=== PATIENT | male | born 1950 | race Caucasian/White ===

== ENCOUNTER 2016-09-28 20:33 | Inpatient (IN) | payer OTHER, MEDICAID ==
[~2016-09-28] VITALS: Ht 172.7 cm; Wt 64.9 kg
[2016-09-28] MEDS ORDERED: Solu-MEDROL 125mg Inj IVP ONE (21:00)
[2016-09-28] MEDS: Ipratropium 0.02% Inh Soln 2.5ml UD HHN SCH ×3 (21:03→21:44)
[2016-09-28] MEDS: Albuterol ud Inhalation HHN SCH ×3 (21:03→21:42)
[2016-09-28 21:26] LABS: BASOPHILS % (AUTO) 0.6 % (0.0-2.0); EOSINOPHILS % (AUTO) 0.9 % (0.0-3.0); LYMPHOCYTES % (AUTO) 13.6 % (20.0-45.0); MEAN CORPUSCULAR HEMOGLOBIN 29.9 PG (27.0-31.0); MEAN CORPUSCULAR HGB CONC 32.8 G/DL (32.0-36.0); MEAN CORPUSCULAR VOLUME 91 FL (80-99); MEAN PLATELET VOLUME 6.9 FL (6.5-10.1); MONOCYTES % (AUTO) 6.4 % (1.0-10.0); NEUTROPHILS % (AUTO) 78.4 % (45.0-75.0); PLATELET COUNT 299 K/UL (150-450); RED BLOOD COUNT 3.71 M/UL (4.70-6.10); RED CELL DISTRIBUTION WIDTH 15.2 % (11.6-14.8); WHITE BLOOD COUNT 10.9 K/UL (4.8-10.8)
--- NOTE | 2016-09-28 21:41 | Emergency Room Report ---
History of Present Illness General Chief Complaint: Dyspnea/Respdistress Source: Patient (CORINNE JOHN M.D.) Present Illness HPI 66-year-old male presents ED complaining of shortness of breath x2 days. Patient has history of COPD. States that he's been having cough and wheezing. Patient was given breathing treatment by EMS. Cough is productive with yellowish phlegm. Denies fevers chills. Denies chest pain. Denies drug use. No other aggravating relieving factors. Denies any other associated symptom (CORINNE JOHN M.D.) Allergies: Coded Allergies: PENICILLINS (Verified Allergy, Unknown, 09/28/16) WOOL (Verified Allergy, Unknown, 09/28/16) Uncoded Allergies: POLLEN (Allergy, Unknown, 09/28/16) Patient History Past Medical History: HTN, asthma, COPD Past Surgical History: none Pertinent Family History: none Social History: Denies: alcohol use, drug use, smoking Immunizations: UTD Reviewed Nursing Documentation: PMH: Agreed, PSxH: Agreed (CORINNE JOHN M.D.) Nursing Documentation-PMH Hx Hypertension: Yes Hx Asthma: Yes Hx COPD: Yes (CORINNE JOHN M.D.) Review of Systems All Other Systems: negative except mentioned in HPI (CORINNE JOHN M.D.) Physical Exam Vital Signs Date Time Temp Pulse Resp B/P Pulse Ox O2 Delivery O2 Flow Rate FiO2 09/28/16 20:27 99.9 92 16 131/75 89 Room Air Sp02 EP Interpretation: reviewed, normal General Appearance: no apparent distress, alert, GCS 15, non-toxic Head: normocephalic, atraumatic Eyes: bilateral eye PERRL, bilateral eye normal inspection ENT: hearing grossly normal, normal pharynx, no angioedema, normal voice Neck: full range of motion, supple/symm/no masses Respiratory: chest non-tender, decreased breath sounds, speaking full sentences , wheezing Cardiovascular #1: regular rate, rhythm, no edema Cardiovascular #2: 2+ carotid (R), 2+ carotid (L), 2+ radial (R), 2+ radial (L) , 2+ dorsalis pedis (R), 2+ dorsalis pedis (L) Gastrointestinal: normal bowel sounds, non tender, soft, non-distended, no guarding, no rebound Rectal: deferred Genitourinary: normal inspection, no CVA tenderness Musculoskeletal: back normal, gait/station normal, normal range of motion, non- tender Neurologic: alert, oriented x3, responsive, motor strength/tone normal, sensory intact, speech normal Psychiatric: judgement/insight normal, memory normal, mood/affect normal, no suicidal/homicidal ideation Reflexes: 3+ bicep (R), 3+ bicep (L), 3+ tricep (R), 3+ tricep (L), 3+ knee (R) , 3+ knee (L) Skin: normal color, no rash, warm/dry, well hydrated Lymphatic: no adenopathy (CORINNE JOHN M.D.) Medical Decision Making Diagnostic Impression: Primary Impression: COPD exacerbation Additional Impressions: Acute on chronic respiratory failure with hypoxia Anemia in chronic illness Labs Test 09/28/16 21:09 White Blood Count 10.9 K/UL (4.8-10.8) Red Blood Count 3.71 M/UL (4.70-6.10) Hemoglobin 11.1 G/DL (14.2-18.0) Hematocrit 33.7 % (42.0-52.0) Mean Corpuscular Volume 91 FL (80-99) Mean Corpuscular Hemoglobin 29.9 PG (27.0-31.0) Mean Corpuscular Hemoglobin Concent 32.8 G/DL (32.0-36.0) Red Cell Distribution Width 15.2 % (11.6-14.8) Platelet Count 299 K/UL (150-450) Mean Platelet Volume 6.9 FL (6.5-10.1) Neutrophils (%) (Auto) 78.4 % (45.0-75.0) Lymphocytes (%) (Auto) 13.6 % (20.0-45.0) Monocytes (%) (Auto) 6.4 % (1.0-10.0) Eosinophils (%) (Auto) 0.9 % (0.0-3.0) Basophils (%) (Auto) 0.6 % (0.0-2.0) (CORINNE JOHN M.D.) ER Course Patient was signed out to me. He presents with shortness of breath and wheezing. He has COPD exacerbation. No evidence of ACS, PE, dissection to name a few. I discussed the case with Dr. Carmona who will admit. Lab Results Impression labs unremarkable (ZEYAD DOWELL M.D.) EKG Diagnostic Results Rate: normal Rhythm: NSR ST Segments: no acute changes ASA given to the pt in ED: No (CORINNE JOHN M.D.) Rhythm Strip Diag. Results EP Interpretation: yes Rhythm: NSR, no PVC's, no ectopy (CORINNE JOHN M.D.) Chest X-Ray Diagnostic Results Chest X-Ray Ordered: Yes # of Views/Limited/Complete: 1 View EP Interpretation: Yes Interpretation: no consolidation, no effusion, no pneumothorax, no acute cardiopulmonary disease Indication: Shortness of Breath Impression: No acute disease Interpreting ER Provider: Zeyad Dowell MD (ZEYAD DOWELL M.D.) Last Vital Signs Date Time Temp Pulse Resp B/P Pulse Ox O2 Delivery O2 Flow Rate FiO2 09/28/16 21:30 94 22 96 Room Air 09/28/16 20:27 99.9 131/75 Status: improved (CORINNE JOHN M.D.) Status: improved (ZEAYD DOWELL M.D.) Disposition: ADMITTED INPATIENT Condition: Serious CORINNE JOHN M.D. Sep 28, 2016 21:41 ZEYAD DOWELL M.D. Sep 28, 2016 23:14
[2016-09-28 21:42] VITALS: BP_SYST 135; BP_SYST 143; BP_DIAS 75; BP_DIAS 89
[2016-09-28 21:46] LABS: TROPONIN I < 0.30 ng/mL (<=0.30)
[2016-09-28 21:50] LABS: ALANINE AMINOTRANSFERASE 15 U/L (3-41); ALBUMIN/GLOBULIN RATIO 1.4 (1.0-2.7); ANION GAP 17 (5-15); ASPARTATE AMINO TRANSFERASE 29 U/L (5-40); CARBON DIOXIDE 25 mEQ/L (20-30); CHLORIDE 95 mEQ/L (98-107); CREATININE 0.8 mg/dL (0.7-1.2); GLOMERULAR FILTRATION RATE > 60 mL/min (>60); HEMOLYSIS 10; POTASSIUM 4.5 mEQ/L (3.4-4.9); SODIUM 137 mEQ/L (135-145); TOTAL PROTEIN 6.9 g/dL (6.6-8.7)
[2016-09-28 22:01] LABS: CKMB 4.8 ng/mL (< 6.7)
[2016-09-28] MEDS ORDERED: Promethazine/Codeine 5ml UD ORAL PRN (23:15)
[2016-09-28] MEDS ORDERED: Nitroglycerin Subl 0.4mg tab (Bottle Of 25) SL PRN (23:15)
[2016-09-28] MEDS ORDERED: Ketorolac 30mg Inj IV PRN (23:15)
[2016-09-28] MEDS ORDERED: LORazepam Inj 2mg/ml 1ml IV PRN (23:15)
[2016-09-28] MEDS ORDERED: DuoNeb 0.5-3(2.5)mg/3ml neb HHN PRN (23:15)
[2016-09-29] VITALS (8 sets, daily range): BP systolic 95–146; BP diastolic 53–89
[2016-09-29] MEDS ORDERED: ADVAIR 100-501 EACH INH (00:09)
[2016-09-29] MEDS ORDERED: PRILOSEC OTC20 MG ORAL (00:11)
[2016-09-29] MEDS ORDERED: OXYCODON-ACETA1 EACH ORAL (00:11)
[2016-09-29] MEDS: Solu-MEDROL 125mg Inj IV SCH ×4 (01:14→18:25)
[2016-09-29] MEDS: Morphine Sulfate 2mg/ml Inj IVP PRN ×5 (01:18→23:19)
[2016-09-29] MEDS ORDERED: FENTANYL1 EAC2 TDERMAL (02:10)
[2016-09-29] MEDS ORDERED: ZOFRAN8 MG ORAL (02:10)
[2016-09-29] MEDS ORDERED: SERTRALINE HCL25 MG ORAL (02:16)
[2016-09-29] MEDS: Theophylline ER 100mg ORAL SCH ×2 (09:06→21:36)
[2016-09-29] MEDS: Heparin 5000 units/ml inj SUBQ SCH ×2 (09:08→21:37)
--- NOTE | 2016-09-29 10:47 | Consultation ---
Consult Note Consult Note ID Dic# [id number] RUBENS TALBERT M.D. Sep 29, 2016 10:47
--- NOTE | 2016-09-29 11:10 | Diagnostic Imaging Report ---
Indication: SOB Technique: One view of the chest Comparison: none Findings: There is right infrahilar opacity, retrocardiac opacity, and bilateral basilar atelectasis upper lung moss, pleural spaces are clear. Heart size is normal. Surgical clips are seen in the region of the gastroesophageal junction. Degenerative changes of both shoulders are noted. Impression: Right infrahilar, retrocardiac opacities. Acuity indeterminate, could represent acute infiltrates versus chronic scarring. Correlate with clinical findings Bilateral basilar atelectasis Other findings as noted
--- NOTE | 2016-09-29 13:21 | History and Physical ---
History of Present Illness General Date patient seen: Sep 29, 2016 Reason for Hospitalization: Dyspnea/Respdistress Present Illness HPI 66-year-old male with hx of COPD, ETOH, pancreatitis presents ED complaining of shortness of breath x2 days, cough and wheezing. Patient was given breathing treatment by EMS. Cough is productive with yellowish phlegm. Denies fevers chills. Denies chest pain. Denies drug use. No other aggravating relieving factors. Denies any other associated symptom. He is admitted for acute exacerbation of [employer] and purulent bronchitis. Allergies: Coded Allergies: PENICILLINS (Verified Allergy, Unknown, 09/28/16) WOOL (Verified Allergy, Unknown, 09/28/16) Uncoded Allergies: POLLEN (Allergy, Unknown, 09/28/16) Medication History Scheduled Fentanyl 75MCG Patch* (Fentanyl 75MCG Patch*), 1 PATCH TDERMAL EVERY 72 HOURS, ( Reported) Fluticasone/Salmeterol (Advair 100-50 Diskus), 1 PUFF INH EVERY 12 HOURS, ( Reported) Omeprazole Magnesium (Prilosec Otc), 20 MG ORAL DAILY, (Reported) Oxycodone Hcl/Acetaminophen 2.5-325 (Oxycodon-Acetaminophen 2.5-325), 1 TAB ORAL Q4H, (Reported) Sertraline Hcl* (Sertraline Hcl*), 25 MG ORAL DAILY, (Reported) Scheduled PRN Ondansetron Hcl* (Zofran*), 8 MG ORAL Q8HR PRN for P, (Reported) Patient History Healthcare decision maker Resuscitation status Full Code Advanced Directive on File Past Medical/Surgical History Past Medical/Surgical History: (1) Chronic pain (2) History of ETOH abuse (3) Chronic pancreatitis Review of Systems All Other Systems: negative except mentioned in HPI Physical Exam General Appearance: WD/WN, no apparent distress Lines, tubes and drains: peripheral HEENT: normocephalic, atraumatic Neck: non-tender, normal alignment Respiratory/Chest: chest wall non-tender, lungs clear Breasts: no masses Cardiovascular/Chest: normal peripheral pulses, normal rate Abdomen: normal bowel sounds, non tender Genitourinary/Rectal: normal genital exam Last 24 Hour Vital Signs Date Time Temp Pulse Resp B/P Pulse Ox O2 Delivery O2 Flow Rate FiO2 09/29/16 11:41 98.1 85 18 95/53 96 Nasal Cannula 2.0 09/29/16 09:36 98.1 09/29/16 07:49 97.7 85 18 96/61 95 Nasal Cannula 2.0 09/29/16 07:07 Nasal Cannula 2.0 09/29/16 07:07 94 Nasal Cannula 2.0 09/29/16 07:05 84 20 Nasal Cannula 2.0 09/29/16 04:00 85 09/29/16 04:00 97.3 46 20 146/84 100 Room Air 09/29/16 01:00 98.1 89 24 124/74 92 Room Air 09/29/16 00:25 96 24 143/89 92 Room Air 2.0 09/29/16 00:23 98.0 96 24 143/89 92 Room Air 2.0 09/28/16 21:45 106 20 97 Room Air 09/28/16 21:45 96 20 97 Room Air 09/28/16 21:42 66 21 Room Air 09/28/16 21:42 98.0 95 24 135/75 99 Room Air 09/28/16 21:30 94 22 96 Room Air 09/28/16 21:29 95 20 95 Room Air 09/28/16 21:06 92 20 100 Room Air 09/28/16 21:05 95 19 98 Room Air 09/28/16 21:03 93 19 Room Air 09/28/16 20:27 99.9 92 16 131/75 89 Room Air Intake and Output 09/28/16 09/29/16 18:59 06:59 Intake Total 120 ml Output Total 150 ml Balance -30 ml Intake Oral 120 ml Output Urine Total 150 ml Laboratory Tests Test 09/28/16 21:09 White Blood Count 10.9 K/UL (4.8-10.8) H Red Blood Count 3.71 M/UL (4.70-6.10) L Hemoglobin 11.1 G/DL (14.2-18.0) L Hematocrit 33.7 % (42.0-52.0) L Mean Corpuscular Volume 91 FL (80-99) Mean Corpuscular Hemoglobin 29.9 PG (27.0-31.0) Mean Corpuscular Hemoglobin Concent 32.8 G/DL (32.0-36.0) Red Cell Distribution Width 15.2 % (11.6-14.8) H Platelet Count 299 K/UL (150-450) Mean Platelet Volume 6.9 FL (6.5-10.1) Neutrophils (%) (Auto) 78.4 % (45.0-75.0) H Lymphocytes (%) (Auto) 13.6 % (20.0-45.0) L Monocytes (%) (Auto) 6.4 % (1.0-10.0) Eosinophils (%) (Auto) 0.9 % (0.0-3.0) Basophils (%) (Auto) 0.6 % (0.0-2.0) Sodium Level 137 mEQ/L (135-145) Potassium Level 4.5 mEQ/L (3.4-4.9) Chloride Level 95 mEQ/L (98-107) L Carbon Dioxide Level 25 mEQ/L (20-30) Anion Gap 17 (5-15) H Blood Urea Nitrogen 14 mg/dL (7-23) Creatinine 0.8 mg/dL (0.7-1.2) Estimat Glomerular Filtration Rate > 60 mL/min (>60) Glucose Level 125 mg/dL (74-106) H Lactic Acid Level 0.70 mmol/L (0.66-2.22) Calcium Level 9.0 mg/dL (8.6-10.2) Total Bilirubin 0.3 mg/dL (0.0-1.2) Aspartate Amino Transf (AST/SGOT) 29 U/L (5-40) Alanine Aminotransferase (ALT/SGPT) 15 U/L (3-41) Alkaline Phosphatase 87 U/L (40-129) Total Creatine Kinase 199 U/L (38-174) H Creatine Kinase MB 4.8 ng/mL (< 6.7) Creatine Kinase MB Relative Index 2.4 Troponin I < 0.30 ng/mL (<=0.30) Pro-B-Type Natriuretic Peptide 47 pg/mL (0-125) Total Protein 6.9 g/dL (6.6-8.7) Albumin 4.1 g/dL (3.5-5.2) Globulin 2.8 g/dL Albumin/Globulin Ratio 1.4 (1.0-2.7) Height (Feet): 5 Height (Inches): 8.00 Weight (Pounds): 143 Medications Current Medications Medications (Trade) Dose Ordered Sig/Neal Route PRN Reason Start Time Stop Time Status Last Admin Dose Admin Albuterol/ Ipratropium (DuoNeb 0.5-3(2.5)mg/3ml) 3 ml Q4H PRN HHN dyspnea 09/28/16 23:15 10/03/16 23:14 Dextrose STAT PRN IV Hypoglycemia 09/28/16 23:15 10/28/16 23:14 Heparin Sodium (Porcine) (Heparin 5000 units/ml) 5,000 units EVERY 12 HOURS SUBQ 09/29/16 09:00 10/29/16 08:59 09/29/16 09:08 Ketorolac Tromethamine (Toradol 30mg) 15 mg Q8H PRN IV moderate pain 4-6 09/28/16 23:15 10/03/16 23:14 Levofloxacin (Levaquin) 100 ml @ 100 mls/hr Q24H IVPB 09/29/16 22:00 10/06/16 21:59 Lorazepam (Ativan 2mg/ml 1ml) 0.5 mg Q4H PRN IV For Anxiety 09/28/16 23:15 10/05/16 23:14 Methylprednisolone Sodium Succinate (Solu-MEDROL) 60 mg EVERY 6 HOURS IV 09/29/16 00:00 10/29/16 00:00 09/29/16 12:57 Morphine Sulfate (Morphine Sulfate) 2 mg Q4H PRN IVP severe pain 7-10 09/28/16 23:15 10/05/16 23:14 09/29/16 09:06 Nitroglycerin (Ntg) 0.4 mg Q5M X 3 DOSES PRN SL Prn Chest Pain 09/28/16 23:15 10/28/16 23:14 Non-Formulary Medication (Non-Formulary Med) 1 ea BID ORAL 09/29/16 18:00 10/29/16 17:59 UNV Non-Formulary Medication (Non-Formulary Med) 1 ea EVERY 72 HOURS TOPIC 09/29/16 12:30 10/29/16 12:29 UNV Ondansetron HCl (Zofran) 4 mg Q6H PRN IVP Nausea & Vomiting 09/28/16 23:15 10/28/16 23:14 09/29/16 09:06 Promethazine HCl/ Codeine (Phenergan with Codeine) 5 ml Q6H PRN ORAL cough 09/28/16 23:15 10/28/16 23:14 Temazepam (Restoril) 15 mg HSPRN PRN ORAL Insomnia 09/28/16 23:15 10/05/16 23:14 Theophylline (Jerry-Dur) 100 mg EVERY 12 HOURS ORAL 09/29/16 09:00 10/29/16 08:59 09/29/16 09:06 Assessment/Plan Problem List: (1) Acute on chronic respiratory failure with hypoxia ICD Codes: J96.21 - Acute and chronic respiratory failure with hypoxia SNOMED: 692533036, 013623125 (2) COPD exacerbation ICD Codes: J44.1 - Chronic obstructive pulmonary disease with (acute) exacerbation SNOMED: 731616261, 989501357 (3) Anemia in chronic illness ICD Codes: D63.8 - Anemia in other chronic diseases classified elsewhere SNOMED: 464901806 (4) Chronic pancreatitis ICD Codes: K86.1 - Other chronic pancreatitis SNOMED: 563556884 (5) Chronic pain ICD Codes: G89.29 - Other chronic pain SNOMED: 13364503 (6) History of ETOH abuse ICD Codes: Z87.898 - Personal history of other specified conditions SNOMED: 618055213 Assessment/Plan iv antibioitcs iv steroids check sputum pain management dvt prophylaxis titrate fio2 to sat of 92% COLEMAN JAMES Sep 29, 2016 13:21
[2016-09-29] MEDS ORDERED: Naloxone 0.4mg/ml Inj IV PRN ×3 (16:00→22:44)
[2016-09-29] MEDS ORDERED: fentaNYL Destruction MISC SCH ×2 (16:00→18:00)
--- NOTE | 2016-09-29 16:15 | Consultation ---
DATE OF CONSULTATION: CONSULTING PHYSICIAN: Vimal Seo M.D. REQUESTING PHYSICIAN: Cristy Carmona M.D. REASON FOR CONSULTATION: Evaluation of the patient for pneumonia and antibiotic management. HISTORY OF PRESENT ILLNESS: The patient is a 66-year-old male, with multiple medical problems, as listed below, who was admitted to this medical center for cough, shortness of breath, and sputum production. The patient was admitted with the impression of COPD exacerbation and pneumonia. An Infectious Disease consultation has been requested for further evaluation of the patient and antibiotic management. PAST MEDICAL HISTORY: 1. Hypertension. 2. COPD. 3. Asthma. 4. History of chronic pancreatitis. 5. Depression. MEDICATIONS: Levaquin and Solu-Medrol. ALLERGIES: Penicillin. SOCIAL HISTORY: The patient is an ex-smoker and ex-alcohol abuse. FAMILY HISTORY: Noncontributory. REVIEW OF SYSTEMS: HEENT: No recent change in vision or hearing. Pulmonary: As mentioned above. Cardiovascular: No chest pain or palpitation. Gastrointestinal/Abdomen: As mentioned above. Genitourinary: No dysuria. PHYSICAL EXAMINATION: VITAL SIGNS: Temperature 97.2 degrees, blood pressure 146/84, pulse 85, and respiratory rate 18. HEENT: Mild pale conjunctivae. NECK: No lymphadenopathy. CHEST: Coarse breathing sounds. HEART: S1 and S2. ABDOMEN: Soft. EXTREMITIES: No cyanosis. NEUROLOGIC: Awake and alert. LABORATORY AND DIAGNOSTIC DATA: White blood cells 10.9, hemoglobin 11, and platelets 299,000. BUN 14 and creatinine 0.8. ALT, AST, and alkaline phosphatase are unremarkable. ASSESSMENT: The patient is a 66-year-old male with multiple medical problems, who was admitted to this medical center for cough, shortness of breath, sputum production, and possible chronic obstructive pulmonary disease exacerbation versus pneumonia. PLAN: 1. We will continue the patient on IV Levaquin day #04/08. 2. Monitor CBC. 3. Monitor BMP. 4. Follow chest x-ray result. 5. Monitor cultures (blood and sputum). 6. Based on the patient's clinical course and laboratories, we will do further recommendations. Thank you, Dr. Carmona, for allowing me to participate in the care of this patient. I will follow the patient with you during this hospitalization. Vimal Seo M.D. DR: WHITNEY JOB#: [id number] CC:
[2016-09-29] MEDS ORDERED: Nitroglycerin Subl 0.4mg tab (Bottle Of 25) SL PRN (22:30)
[2016-09-29] MEDS ORDERED: Ketorolac 30mg Inj IV PRN (22:48)
[2016-09-29] MEDS ORDERED: LORazepam Inj 2mg/ml 1ml IV PRN (22:50)
[2016-09-29] MEDS ORDERED: Promethazine/Codeine 5ml UD ORAL PRN (22:51)
[2016-09-30] VITALS (8 sets, daily range): BP systolic 104–139; BP diastolic 68–94
[2016-09-30] MEDS: Solu-MEDROL 125mg Inj IV SCH ×4 (01:04→17:37)
[2016-09-30] MEDS: Morphine Sulfate 2mg/ml Inj IVP PRN ×4 (03:33→20:53)
[2016-09-30] MEDS: Heparin 5000 units/ml inj SUBQ SCH ×2 (10:50→20:54)
[2016-09-30] MEDS: Theophylline ER 100mg ORAL SCH ×2 (10:50→20:53)
[2016-09-30] MEDS ORDERED: fentaNYL Destruction MISC SCH (13:00)
[2016-09-30] MEDS: DuoNeb 0.5-3(2.5)mg/3ml neb HHN PRN ×3 (13:04→21:38)
--- NOTE | 2016-09-30 18:53 | Pulmonology Progress Note ---
Assessment/Plan Problems: (1) Acute on chronic respiratory failure with hypoxia (2) COPD exacerbation (3) Anemia in chronic illness (4) Chronic pancreatitis (5) Chronic pain (6) History of ETOH abuse Assessment/Plan taper steroids, check sputum pain and GI consults dc probably in 1-2 days. Subjective ROS Limited/Unobtainable: No Constitutional: Reports: no symptoms HEENT: Repors: no symptoms Respiratory: Reports: no symptoms Cardiovascular: Reports: no symptoms Allergies: Coded Allergies: PENICILLINS (Verified Allergy, Unknown, 09/28/16) WOOL (Verified Allergy, Unknown, 09/28/16) Uncoded Allergies: POLLEN (Allergy, Unknown, 09/28/16) Objective Last 24 Hour Vital Signs Date Time Temp Pulse Resp B/P Pulse Ox O2 Delivery O2 Flow Rate FiO2 09/30/16 17:09 98.4 09/30/16 17:01 85 18 96 Nasal Cannula 2.0 09/30/16 16:52 75 20 93 Nasal Cannula 2.0 09/30/16 16:14 98.4 79 23 117/72 94 Nasal Cannula 2.0 09/30/16 13:24 97.9 09/30/16 13:15 96 20 97 Room Air 09/30/16 13:05 82 20 94 Nasal Cannula 2.0 09/30/16 13:00 81 21 131/74 94 Room Air 09/30/16 11:52 97.9 72 22 139/75 95 Room Air 09/30/16 08:16 95 Nasal Cannula 2.0 09/30/16 08:16 Nasal Cannula 2.0 09/30/16 08:16 79 20 Nasal Cannula 2.0 09/30/16 08:15 98.2 73 21 115/71 94 Nasal Cannula 2.0 09/30/16 03:51 98.2 68 18 104/68 90 Room Air 09/30/16 00:00 98.2 70 19 121/78 92 Room Air 09/29/16 22:14 98.1 68 17 123/78 94 Room Air 09/29/16 20:00 97.7 73 21 97/53 90 Nasal Cannula 2.0 09/29/16 19:39 Nasal Cannula 2.0 09/29/16 19:39 94 Nasal Cannula 2.0 09/29/16 19:38 76 22 Nasal Cannula 2.0 28 09/29/16 18:56 97.7 Intake and Output 09/29/16 09/30/16 19:00 07:00 Intake Total 360 ml 240 ml Output Total 550 ml 1000 ml Balance -190 ml -760 ml Intake Oral 360 ml 240 ml Output Urine Total 550 ml 1000 ml # Voids 1 General Appearance: WD/WN HEENT: normocephalic, atraumatic Respiratory/Chest: chest wall non-tender, lungs clear Cardiovascular: normal peripheral pulses, normal rate Abdomen: normal bowel sounds, soft, non tender Genitourinary: normal external genitalia Extremities: no cyanosis Microbiology Date/Time Source Procedure Growth Status 09/28/16 21:25 Blood Blood Culture - Preliminary NO GROWTH AFTER 24 HOURS Resulted 09/28/16 21:10 Blood Blood Culture - Preliminary NO GROWTH AFTER 24 HOURS Resulted Current Medications Medications (Trade) Dose Ordered Sig/Neal Route PRN Reason Start Time Stop Time Status Last Admin Dose Admin Albuterol/ Ipratropium (DuoNeb 0.5-3(2.5)mg/3ml) 3 ml Q4H PRN HHN dyspnea 09/29/16 22:50 10/04/16 22:49 09/30/16 16:52 Dextrose (Dextrose 50%) STAT PRN IV Hypoglycemia 09/29/16 22:49 10/29/16 22:48 Fentanyl (Duragesic) 1 patch Q72H TDERMAL 09/30/16 13:00 10/07/16 12:59 09/30/16 12:54 Heparin Sodium (Porcine) (Heparin 5000 units/ml) 5,000 units EVERY 12 HOURS SUBQ 09/30/16 09:00 10/30/16 08:59 09/30/16 10:50 Ketorolac Tromethamine (Toradol 30mg) 15 mg Q8H PRN IV moderate pain 4-6 09/29/16 22:48 10/04/16 22:47 Levofloxacin (Levaquin) 100 ml @ 100 mls/hr Q24H IVPB 09/30/16 22:00 10/07/16 21:59 Lorazepam (Ativan 2mg/ml 1ml) 0.5 mg Q4H PRN IV For Anxiety 09/29/16 22:50 10/06/16 22:49 Methylprednisolone Sodium Succinate (Solu-MEDROL) 60 mg EVERY 6 HOURS IV 09/30/16 00:00 10/30/16 00:00 09/30/16 17:37 Miscellaneous Medication (fentaNYL Destruction) 1 ea Q72H MISC 09/30/16 13:00 10/30/16 12:59 09/30/16 13:13 Morphine Sulfate (Morphine Sulfate) 2 mg Q4H PRN IVP severe pain 7-10 09/29/16 22:48 10/06/16 22:47 09/30/16 16:39 Naloxone HCl (Narcan) 0.1 mg STAT PRN IV sedation scale 3-4 09/29/16 22:44 10/29/16 22:43 Nitroglycerin (Ntg) 0.4 mg Q5M X 3 DOSES PRN SL Prn Chest Pain 09/29/16 22:30 10/29/16 22:29 Ondansetron HCl (Zofran) 4 mg Q6H PRN IVP Nausea & Vomiting 09/29/16 22:51 10/29/16 22:50 Pantoprazole (Protonix) 40 mg BID ORAL 09/30/16 09:00 10/30/16 08:59 09/30/16 17:37 Promethazine HCl/ Codeine (Phenergan with Codeine) 5 ml Q6H PRN ORAL cough 09/29/16 22:51 10/29/16 22:50 Temazepam (Restoril) 15 mg HSPRN PRN ORAL Insomnia 09/29/16 22:49 10/06/16 22:48 Theophylline (Jerry-Dur) 100 mg EVERY 12 HOURS ORAL 09/30/16 09:00 10/30/16 08:59 09/30/16 10:50 COLEMAN JAMES Sep 30, 2016 18:53
--- NOTE | 2016-09-30 21:58 | Infectious Diseases Prog Note ---
Assessment/Plan Assessment/Plan A: The patient is a 66-year-old male, with Pneumonia COPD exacerbation Hypertension COPD Asthma History of chronic pancreatitis Depression PLAN: will continue the patient on IV Levaquin day # 2 /5 Monitor CBC. Monitor BMP. chest x-ray Monitor cultures (blood and sputum) Subjective Allergies: Coded Allergies: PENICILLINS (Verified Allergy, Unknown, 09/28/16) WOOL (Verified Allergy, Unknown, 09/28/16) Uncoded Allergies: POLLEN (Allergy, Unknown, 09/28/16) Subjective afebrile Objective Vital Signs Last 24 Hour Vital Signs Date Time Temp Pulse Resp B/P Pulse Ox O2 Delivery O2 Flow Rate FiO2 09/30/16 21:32 76 18 90 Nasal Cannula 2.0 09/30/16 20:37 Nasal Cannula 2.0 09/30/16 20:36 94 Nasal Cannula 2.0 09/30/16 20:36 71 18 Nasal Cannula 2.0 09/30/16 20:00 98.2 71 18 135/80 93 Room Air 09/30/16 17:09 98.4 09/30/16 17:01 85 18 96 Nasal Cannula 2.0 09/30/16 16:52 75 20 93 Nasal Cannula 2.0 09/30/16 16:14 98.4 79 23 117/72 94 Nasal Cannula 2.0 09/30/16 13:24 97.9 09/30/16 13:15 96 20 97 Room Air 09/30/16 13:05 82 20 94 Nasal Cannula 2.0 09/30/16 13:00 81 21 131/74 94 Room Air 09/30/16 11:52 97.9 72 22 139/75 95 Room Air 09/30/16 08:16 95 Nasal Cannula 2.0 09/30/16 08:16 Nasal Cannula 2.0 09/30/16 08:16 79 20 Nasal Cannula 2.0 09/30/16 08:15 98.2 73 21 115/71 94 Nasal Cannula 2.0 09/30/16 03:51 98.2 68 18 104/68 90 Room Air 09/30/16 00:00 98.2 70 19 121/78 92 Room Air 09/29/16 22:14 98.1 68 17 123/78 94 Room Air Height (Feet): 5 Height (Inches): 8.00 Weight (Pounds): 143 HEENT: atraumatic Respiratory/Chest: normal breath sounds Cardiovascular: regular rhythm Abdomen: no organomegaly Microbiology Date/Time Source Procedure Growth Status 09/28/16 21:25 Blood Blood Culture - Preliminary NO GROWTH AFTER 24 HOURS Resulted 09/28/16 21:10 Blood Blood Culture - Preliminary NO GROWTH AFTER 24 HOURS Resulted Current Medications Medications (Trade) Dose Ordered Sig/Neal Route PRN Reason Start Time Stop Time Status Last Admin Dose Admin Albuterol/ Ipratropium (DuoNeb 0.5-3(2.5)mg/3ml) 3 ml Q4H PRN HHN dyspnea 09/29/16 22:50 10/04/16 22:49 09/30/16 21:38 Dextrose (Dextrose 50%) STAT PRN IV Hypoglycemia 09/29/16 22:49 10/29/16 22:48 Fentanyl (Duragesic) 1 patch Q72H TDERMAL 09/30/16 13:00 10/07/16 12:59 09/30/16 12:54 Heparin Sodium (Porcine) (Heparin 5000 units/ml) 5,000 units EVERY 12 HOURS SUBQ 09/30/16 09:00 10/30/16 08:59 09/30/16 10:50 Ketorolac Tromethamine (Toradol 30mg) 15 mg Q8H PRN IV moderate pain 4-6 09/29/16 22:48 10/04/16 22:47 Levofloxacin (Levaquin) 100 ml @ 100 mls/hr Q24H IVPB 09/30/16 22:00 10/07/16 21:59 09/30/16 21:10 Lorazepam (Ativan 2mg/ml 1ml) 0.5 mg Q4H PRN IV For Anxiety 09/29/16 22:50 10/06/16 22:49 Methylprednisolone Sodium Succinate (Solu-MEDROL) 60 mg DAILY IV 10/01/16 09:00 10/31/16 08:59 Miscellaneous Medication (fentaNYL Destruction) 1 ea Q72H MISC 09/30/16 13:00 10/30/16 12:59 09/30/16 13:13 Morphine Sulfate (Morphine Sulfate) 2 mg Q4H PRN IVP severe pain 7-10 09/29/16 22:48 10/06/16 22:47 09/30/16 20:53 Naloxone HCl (Narcan) 0.1 mg STAT PRN IV sedation scale 3-4 09/29/16 22:44 10/29/16 22:43 Nitroglycerin (Ntg) 0.4 mg Q5M X 3 DOSES PRN SL Prn Chest Pain 09/29/16 22:30 10/29/16 22:29 Ondansetron HCl (Zofran) 4 mg Q6H PRN IVP Nausea & Vomiting 09/29/16 22:51 10/29/16 22:50 Pantoprazole (Protonix) 40 mg BID ORAL 09/30/16 09:00 10/30/16 08:59 09/30/16 17:37 Promethazine HCl/ Codeine (Phenergan with Codeine) 5 ml Q6H PRN ORAL cough 09/29/16 22:51 10/29/16 22:50 Temazepam (Restoril) 15 mg HSPRN PRN ORAL Insomnia 09/29/16 22:49 10/06/16 22:48 Theophylline (Jerry-Dur) 100 mg EVERY 12 HOURS ORAL 09/30/16 09:00 10/30/16 08:59 09/30/16 20:53 RUBENS TALBERT M.D. Sep 30, 2016 21:58
[2016-10-01] MEDS: Morphine Sulfate 2mg/ml Inj IVP PRN ×2 (01:09→08:27)
[2016-10-01] MEDS: DuoNeb 0.5-3(2.5)mg/3ml neb HHN PRN (02:29)
[2016-10-01 04:00] VITALS: BP 123/80
[2016-10-01 08:15] VITALS: BP 137/67
[2016-10-01] MEDS: Theophylline ER 100mg ORAL SCH (08:24)
[2016-10-01] MEDS: Heparin 5000 units/ml inj SUBQ SCH (08:32)
[2016-10-01 08:36] LABS: BASOPHILS % (AUTO) 0.3 % (0.0-2.0); LYMPHOCYTES % (AUTO) 13.1 % (20.0-45.0); MEAN CORPUSCULAR HGB CONC 31.8 G/DL (32.0-36.0); MEAN CORPUSCULAR VOLUME 91 FL (80-99); MEAN PLATELET VOLUME 7.1 FL (6.5-10.1); MONOCYTES % (AUTO) 6.6 % (1.0-10.0); NEUTROPHILS % (AUTO) 79.9 % (45.0-75.0); PLATELET COUNT 400 K/UL (150-450); RED BLOOD COUNT 4.02 M/UL (4.70-6.10); RED CELL DISTRIBUTION WIDTH 15.2 % (11.6-14.8); WHITE BLOOD COUNT 15.4 K/UL (4.8-10.8)
--- NOTE | 2016-10-01 08:48 | Infectious Diseases Prog Note ---
Assessment/Plan Assessment/Plan A: The patient is a 66-year-old male, with Pneumonia COPD exacerbation Hypertension COPD Asthma History of chronic pancreatitis Depression PLAN: will continue the patient on IV Levaquin day # 3 /5 , upon DC will cont on oral Levaquin to complete the course Monitor CBC. Monitor BMP. chest x-ray Monitor cultures (blood and sputum) Subjective Allergies: Coded Allergies: PENICILLINS (Verified Allergy, Unknown, 09/28/16) WOOL (Verified Allergy, Unknown, 09/28/16) Uncoded Allergies: POLLEN (Allergy, Unknown, 09/28/16) Subjective comfortable Objective Vital Signs Last 24 Hour Vital Signs Date Time Temp Pulse Resp B/P Pulse Ox O2 Delivery O2 Flow Rate FiO2 10/01/16 08:15 97.6 92 21 137/67 93 Nasal Cannula 2.0 10/01/16 04:00 98.8 84 18 123/80 93 Room Air 10/01/16 02:41 84 18 93 Nasal Cannula 3.0 32 10/01/16 02:30 86 18 91 Nasal Cannula 3.0 09/30/16 23:41 97.7 89 18 134/94 92 Nasal Cannula 2.0 09/30/16 21:42 80 18 93 Nasal Cannula 2.0 09/30/16 21:32 76 18 90 Nasal Cannula 2.0 09/30/16 20:37 Nasal Cannula 2.0 09/30/16 20:36 94 Nasal Cannula 2.0 09/30/16 20:36 71 18 Nasal Cannula 2.0 09/30/16 20:00 98.2 71 18 135/80 93 Room Air 09/30/16 17:09 98.4 09/30/16 17:01 85 18 96 Nasal Cannula 2.0 28 09/30/16 16:52 75 20 93 Nasal Cannula 2.0 09/30/16 16:14 98.4 79 23 117/72 94 Nasal Cannula 2.0 09/30/16 13:24 97.9 09/30/16 13:15 96 20 97 Room Air 09/30/16 13:05 82 20 94 Nasal Cannula 2.0 09/30/16 13:00 81 21 131/74 94 Room Air 09/30/16 11:52 97.9 72 22 139/75 95 Room Air Height (Feet): 5 Height (Inches): 8.00 Weight (Pounds): 143 HEENT: mucous membranes moist Respiratory/Chest: normal breath sounds Cardiovascular: regularly irregular Abdomen: non distended Microbiology Date/Time Source Procedure Growth Status 09/28/16 21:25 Blood Blood Culture - Preliminary NO GROWTH AFTER 48 HOURS Resulted 09/28/16 21:10 Blood Blood Culture - Preliminary NO GROWTH AFTER 48 HOURS Resulted 09/29/16 07:30 Rectum VRE Culture - Final NO VANCOMYCIN RESISTANT ENTEROCOCCUS ... Complete Laboratory Tests Test 10/01/16 08:20 White Blood Count Pending Red Blood Count Pending Hemoglobin Pending Hematocrit Pending Mean Corpuscular Volume Pending Mean Corpuscular Hemoglobin Pending Mean Corpuscular Hemoglobin Concent Pending Red Cell Distribution Width Pending Platelet Count Pending Mean Platelet Volume Pending Neutrophils (%) (Auto) Pending Lymphocytes (%) (Auto) Pending Monocytes (%) (Auto) Pending Eosinophils (%) (Auto) Pending Basophils (%) (Auto) Pending Sodium Level Pending Potassium Level Pending Chloride Level Pending Carbon Dioxide Level Pending Blood Urea Nitrogen Pending Creatinine Pending Estimat Glomerular Filtration Rate Pending Glucose Level Pending Calcium Level Pending Phosphorus Level Pending Magnesium Level Pending Total Bilirubin Pending Aspartate Amino Transf (AST/SGOT) Pending Alanine Aminotransferase (ALT/SGPT) Pending Alkaline Phosphatase Pending Total Protein Pending Albumin Pending Globulin Pending Current Medications Medications (Trade) Dose Ordered Sig/Neal Route PRN Reason Start Time Stop Time Status Last Admin Dose Admin Albuterol/ Ipratropium (DuoNeb 0.5-3(2.5)mg/3ml) 3 ml Q4H PRN HHN dyspnea 09/29/16 22:50 10/04/16 22:49 10/01/16 02:29 Dextrose (Dextrose 50%) STAT PRN IV Hypoglycemia 09/29/16 22:49 10/29/16 22:48 Fentanyl (Duragesic) 1 patch Q72H TDERMAL 09/30/16 13:00 10/07/16 12:59 09/30/16 12:54 Heparin Sodium (Porcine) (Heparin 5000 units/ml) 5,000 units EVERY 12 HOURS SUBQ 09/30/16 09:00 10/30/16 08:59 10/01/16 08:32 Ketorolac Tromethamine (Toradol 30mg) 15 mg Q8H PRN IV moderate pain 4-6 09/29/16 22:48 10/04/16 22:47 Levofloxacin (Levaquin) 100 ml @ 100 mls/hr Q24H IVPB 09/30/16 22:00 10/07/16 21:59 09/30/16 21:10 Lorazepam (Ativan 2mg/ml 1ml) 0.5 mg Q4H PRN IV For Anxiety 09/29/16 22:50 10/06/16 22:49 Methylprednisolone Sodium Succinate (Solu-MEDROL) 60 mg DAILY IV 10/01/16 09:00 10/31/16 08:59 10/01/16 08:26 Miscellaneous Medication (fentaNYL Destruction) 1 ea Q72H MISC 09/30/16 13:00 10/30/16 12:59 09/30/16 13:13 Morphine Sulfate (Morphine Sulfate) 2 mg Q4H PRN IVP severe pain 7-10 09/29/16 22:48 10/06/16 22:47 10/01/16 08:27 Naloxone HCl (Narcan) 0.1 mg STAT PRN IV sedation scale 3-4 09/29/16 22:44 10/29/16 22:43 Nitroglycerin (Ntg) 0.4 mg Q5M X 3 DOSES PRN SL Prn Chest Pain 09/29/16 22:30 10/29/16 22:29 Ondansetron HCl (Zofran) 4 mg Q6H PRN IVP Nausea & Vomiting 09/29/16 22:51 10/29/16 22:50 Pantoprazole (Protonix) 40 mg BID ORAL 09/30/16 09:00 10/30/16 08:59 10/01/16 08:26 Promethazine HCl/ Codeine (Phenergan with Codeine) 5 ml Q6H PRN ORAL cough 09/29/16 22:51 10/29/16 22:50 Temazepam (Restoril) 15 mg HSPRN PRN ORAL Insomnia 09/29/16 22:49 10/06/16 22:48 Theophylline (Jerry-Dur) 100 mg EVERY 12 HOURS ORAL 09/30/16 09:00 10/30/16 08:59 10/01/16 08:24 RUBENS TALBERT M.D. Oct 01, 2016 08:48
[2016-10-01 08:50] LABS: ALANINE AMINOTRANSFERASE 11 U/L (3-41); ALBUMIN/GLOBULIN RATIO 1.2 (1.0-2.7); ANION GAP 15 (5-15); ASPARTATE AMINO TRANSFERASE 17 U/L (5-40); CALCIUM 9.2 mg/dL (8.6-10.2); CARBON DIOXIDE 24 mEQ/L (20-30); CHLORIDE 96 mEQ/L (98-107); CREATININE 0.9 mg/dL (0.7-1.2); GLOMERULAR FILTRATION RATE > 60 mL/min (>60); HEMOLYSIS 0; MAGNESIUM 1.6 mg/dL (1.7-2.5); PHOSPHORUS 4.4 mg/dL (2.5-4.8); POTASSIUM 4.2 mEQ/L (3.4-4.9); SODIUM 135 mEQ/L (135-145); TOTAL PROTEIN 7.1 g/dL (6.6-8.7)
[2016-10-01] MEDS ORDERED: Solu-MEDROL 125mg Inj IV SCH (09:00)
--- NOTE | 2016-10-01 09:11 | Consultation ---
History of Present Illness General Date patient seen: Oct 01, 2016 Chief Complaint: Present Illness Allergies: Coded Allergies: PENICILLINS (Verified Allergy, Unknown, 09/28/16) WOOL (Verified Allergy, Unknown, 09/28/16) Uncoded Allergies: POLLEN (Allergy, Unknown, 09/28/16) Medication History Scheduled Fentanyl 75MCG Patch* (Fentanyl 75MCG Patch*), 1 PATCH TDERMAL EVERY 72 HOURS, ( Reported) Fluticasone/Salmeterol (Advair 100-50 Diskus), 1 PUFF INH EVERY 12 HOURS, ( Reported) Omeprazole Magnesium (Prilosec Otc), 20 MG ORAL DAILY, (Reported) Oxycodone Hcl/Acetaminophen 2.5-325 (Oxycodon-Acetaminophen 2.5-325), 1 TAB ORAL Q4H, (Reported) Sertraline Hcl* (Sertraline Hcl*), 25 MG ORAL DAILY, (Reported) Scheduled PRN Ondansetron Hcl* (Zofran*), 8 MG ORAL Q8HR PRN for P, (Reported) Patient History Healthcare decision maker Resuscitation status Full Code Advanced Directive on File Physical Exam Last 24 Hour Vital Signs Date Time Temp Pulse Resp B/P Pulse Ox O2 Delivery O2 Flow Rate FiO2 10/01/16 08:15 97.6 92 21 137/67 93 Nasal Cannula 2.0 10/01/16 04:00 98.8 84 18 123/80 93 Room Air 10/01/16 02:41 84 18 93 Nasal Cannula 3.0 32 10/01/16 02:30 86 18 91 Nasal Cannula 3.0 32 09/30/16 23:41 97.7 89 18 134/94 92 Nasal Cannula 2.0 09/30/16 21:42 80 18 93 Nasal Cannula 2.0 09/30/16 21:32 76 18 90 Nasal Cannula 2.0 09/30/16 20:37 Nasal Cannula 2.0 09/30/16 20:36 94 Nasal Cannula 2.0 09/30/16 20:36 71 18 Nasal Cannula 2.0 09/30/16 20:00 98.2 71 18 135/80 93 Room Air 09/30/16 17:09 98.4 09/30/16 17:01 85 18 96 Nasal Cannula 2.0 09/30/16 16:52 75 20 93 Nasal Cannula 2.0 28 09/30/16 16:14 98.4 79 23 117/72 94 Nasal Cannula 2.0 09/30/16 13:24 97.9 09/30/16 13:15 96 20 97 Room Air 09/30/16 13:05 82 20 94 Nasal Cannula 2.0 28 09/30/16 13:00 81 21 131/74 94 Room Air 09/30/16 11:52 97.9 72 22 139/75 95 Room Air Intake and Output 09/30/16 10/01/16 19:00 07:00 Intake Total 1200 ml 2100 ml Balance 1200 ml 2100 ml Intake Oral 1200 ml 2000 ml IV Total 100 ml # Voids 2 3 # Bowel Movements 1 Laboratory Tests Test 10/01/16 08:20 White Blood Count 15.4 K/UL (4.8-10.8) H Red Blood Count 4.02 M/UL (4.70-6.10) L Hemoglobin 11.7 G/DL (14.2-18.0) L Hematocrit 36.7 % (42.0-52.0) L Mean Corpuscular Volume 91 FL (80-99) Mean Corpuscular Hemoglobin 29.0 PG (27.0-31.0) Mean Corpuscular Hemoglobin Concent 31.8 G/DL (32.0-36.0) L Red Cell Distribution Width 15.2 % (11.6-14.8) H Platelet Count 400 K/UL (150-450) Mean Platelet Volume 7.1 FL (6.5-10.1) Neutrophils (%) (Auto) 79.9 % (45.0-75.0) H Lymphocytes (%) (Auto) 13.1 % (20.0-45.0) L Monocytes (%) (Auto) 6.6 % (1.0-10.0) Eosinophils (%) (Auto) 0.0 % (0.0-3.0) Basophils (%) (Auto) 0.3 % (0.0-2.0) Sodium Level Pending Potassium Level Pending Chloride Level Pending Carbon Dioxide Level Pending Blood Urea Nitrogen Pending Creatinine Pending Estimat Glomerular Filtration Rate Pending Glucose Level Pending Calcium Level Pending Phosphorus Level Pending Magnesium Level Pending Total Bilirubin Pending Aspartate Amino Transf (AST/SGOT) Pending Alanine Aminotransferase (ALT/SGPT) Pending Alkaline Phosphatase Pending Total Protein Pending Albumin Pending Globulin Pending Height (Feet): 5 Height (Inches): 8.00 Weight (Pounds): 143 Medications Current Medications Medications (Trade) Dose Ordered Sig/Neal Route PRN Reason Start Time Stop Time Status Last Admin Dose Admin Albuterol/ Ipratropium (DuoNeb 0.5-3(2.5)mg/3ml) 3 ml Q4H PRN HHN dyspnea 09/29/16 22:50 10/04/16 22:49 10/01/16 02:29 Dextrose (Dextrose 50%) STAT PRN IV Hypoglycemia 09/29/16 22:49 10/29/16 22:48 Fentanyl (Duragesic) 1 patch Q72H TDERMAL 09/30/16 13:00 10/07/16 12:59 09/30/16 12:54 Heparin Sodium (Porcine) (Heparin 5000 units/ml) 5,000 units EVERY 12 HOURS SUBQ 09/30/16 09:00 10/30/16 08:59 10/01/16 08:32 Ketorolac Tromethamine (Toradol 30mg) 15 mg Q8H PRN IV moderate pain 4-6 09/29/16 22:48 10/04/16 22:47 Levofloxacin (Levaquin) 100 ml @ 100 mls/hr Q24H IVPB 09/30/16 22:00 10/07/16 21:59 09/30/16 21:10 Lorazepam (Ativan 2mg/ml 1ml) 0.5 mg Q4H PRN IV For Anxiety 09/29/16 22:50 10/06/16 22:49 Methylprednisolone Sodium Succinate (Solu-MEDROL) 60 mg DAILY IV 10/01/16 09:00 10/31/16 08:59 10/01/16 08:26 Miscellaneous Medication (fentaNYL Destruction) 1 ea Q72H MISC 09/30/16 13:00 10/30/16 12:59 09/30/16 13:13 Morphine Sulfate (Morphine Sulfate) 2 mg Q4H PRN IVP severe pain 7-10 09/29/16 22:48 10/06/16 22:47 10/01/16 08:27 Naloxone HCl (Narcan) 0.1 mg STAT PRN IV sedation scale 3-4 09/29/16 22:44 10/29/16 22:43 Nitroglycerin (Ntg) 0.4 mg Q5M X 3 DOSES PRN SL Prn Chest Pain 09/29/16 22:30 10/29/16 22:29 Ondansetron HCl (Zofran) 4 mg Q6H PRN IVP Nausea & Vomiting 09/29/16 22:51 10/29/16 22:50 Pantoprazole (Protonix) 40 mg BID ORAL 09/30/16 09:00 10/30/16 08:59 10/01/16 08:26 Promethazine HCl/ Codeine (Phenergan with Codeine) 5 ml Q6H PRN ORAL cough 09/29/16 22:51 10/29/16 22:50 Temazepam (Restoril) 15 mg HSPRN PRN ORAL Insomnia 09/29/16 22:49 10/06/16 22:48 Theophylline (Jerry-Dur) 100 mg EVERY 12 HOURS ORAL 09/30/16 09:00 10/30/16 08:59 10/01/16 08:24 Assessment/Plan Assessment/Plan (1) Chronic Pancreatitis (2) Chronic Abdominal pain Seen dictated ZACK DOOLEY Oct 01, 2016 09:11
[2016-10-01] MEDS ORDERED: Oxycodone/Acetaminophen 5-325 ORAL PRN (09:15)
--- NOTE | 2016-10-01 09:45 | Pulmonology Progress Note ---
Assessment/Plan Assessment/Plan ASSESSMENT acute on chronic hypoxemic respiratory failure COPD exacerbation HTN chronic pancreatitis chronic pain syndrome depression anemia of chronic disease hypomagnesemia hx of ETOH abuse PLAN OF CARE MS floor O2 HHN prn steroids IV leucocytosis today, likely reactive , clinically improved, will change to oral Medrol dose pack empiric abx CXR no acute cardiopulmonary pathology continue [id number] antitussive prn blood cx preliminary negative DVT GI prophylaxis judicious pain management replace Mg dc to SNF after Mg replacement case discussed and evaluated by supervising physician Subjective Allergies: Coded Allergies: PENICILLINS (Verified Allergy, Unknown, 09/28/16) WOOL (Verified Allergy, Unknown, 09/28/16) Uncoded Allergies: POLLEN (Allergy, Unknown, 09/28/16) Subjective denies SOB, chest pain clinically improving stable pulse oximetry on RA' leucocytosis today Mg-1.6 Objective Last 24 Hour Vital Signs Date Time Temp Pulse Resp B/P Pulse Ox O2 Delivery O2 Flow Rate FiO2 10/01/16 08:15 97.6 92 21 137/67 93 Nasal Cannula 2.0 10/01/16 04:00 98.8 84 18 123/80 93 Room Air 10/01/16 02:41 84 18 93 Nasal Cannula 3.0 32 10/01/16 02:30 86 18 91 Nasal Cannula 3.0 09/30/16 23:41 97.7 89 18 134/94 92 Nasal Cannula 2.0 09/30/16 21:42 80 18 93 Nasal Cannula 2.0 09/30/16 21:32 76 18 90 Nasal Cannula 2.0 09/30/16 20:37 Nasal Cannula 2.0 09/30/16 20:36 94 Nasal Cannula 2.0 09/30/16 20:36 71 18 Nasal Cannula 2.0 09/30/16 20:00 98.2 71 18 135/80 93 Room Air 09/30/16 17:09 98.4 09/30/16 17:01 85 18 96 Nasal Cannula 2.0 09/30/16 16:52 75 20 93 Nasal Cannula 2.0 09/30/16 16:14 98.4 79 23 117/72 94 Nasal Cannula 2.0 09/30/16 13:24 97.9 09/30/16 13:15 96 20 97 Room Air 09/30/16 13:05 82 20 94 Nasal Cannula 2.0 28 09/30/16 13:00 81 21 131/74 94 Room Air 09/30/16 11:52 97.9 72 22 139/75 95 Room Air Intake and Output 09/30/16 10/01/16 19:00 07:00 Intake Total 1200 ml 2100 ml Balance 1200 ml 2100 ml Intake Oral 1200 ml 2000 ml IV Total 100 ml # Voids 2 3 # Bowel Movements 1 General Appearance: no acute distress, cachetic, other - A/A/O x3 male HEENT: normocephalic, anicteric, mucous membranes moist Respiratory/Chest: no respiratory distress, no accessory muscle use, decreased breath sounds Cardiovascular: normal rate, regular rhythm, no JVD Abdomen: normal bowel sounds, soft, non tender Extremities: no edema, pedal pulses normal Neurologic/Psychiatric: no motor/sensory deficits, alert, oriented x 3, responsive Musculoskeletal: normal muscle bulk Microbiology Date/Time Source Procedure Growth Status 09/28/16 21:25 Blood Blood Culture - Preliminary NO GROWTH AFTER 48 HOURS Resulted 09/28/16 21:10 Blood Blood Culture - Preliminary NO GROWTH AFTER 48 HOURS Resulted 09/29/16 07:30 Rectum VRE Culture - Final NO VANCOMYCIN RESISTANT ENTEROCOCCUS ... Complete Laboratory Tests 10/01/16 08:20: White Blood Count 15.4H, Red Blood Count 4.02L, Hemoglobin 11.7L, Hematocrit 36.7L, Mean Corpuscular Volume 91, Mean Corpuscular Hemoglobin 29.0, Mean Corpuscular Hemoglobin Concent 31.8L, Red Cell Distribution Width 15.2H, Platelet Count 400, Mean Platelet Volume 7.1, Neutrophils (%) (Auto) 79.9H, Lymphocytes (%) (Auto) 13.1L, Monocytes (%) (Auto) 6.6, Eosinophils (%) (Auto) 0.0, Basophils (%) (Auto) 0.3, Sodium Level 135, Potassium Level 4.2, Chloride Level 96L, Carbon Dioxide Level 24, Anion Gap 15, Blood Urea Nitrogen 29H, Creatinine 0.9, Estimat Glomerular Filtration Rate > 60, Glucose Level 113H, Calcium Level 9.2, Phosphorus Level 4.4, Magnesium Level 1.6L, Total Bilirubin 0.2, Aspartate Amino Transf (AST/SGOT) 17, Alanine Aminotransferase (ALT/SGPT) 11, Alkaline Phosphatase 70, Total Protein 7.1, Albumin 3.9, Globulin 3.2, Albumin/Globulin Ratio 1.2 Current Medications Medications (Trade) Dose Ordered Sig/Neal Route PRN Reason Start Time Stop Time Status Last Admin Dose Admin Albuterol/ Ipratropium (DuoNeb 0.5-3(2.5)mg/3ml) 3 ml Q4H PRN HHN dyspnea 09/29/16 22:50 10/04/16 22:49 10/01/16 02:29 Dextrose (Dextrose 50%) STAT PRN IV Hypoglycemia 09/29/16 22:49 10/29/16 22:48 Fentanyl (Duragesic) 1 patch Q72H TDERMAL 09/30/16 13:00 10/07/16 12:59 09/30/16 12:54 Heparin Sodium (Porcine) (Heparin 5000 units/ml) 5,000 units EVERY 12 HOURS SUBQ 09/30/16 09:00 10/30/16 08:59 10/01/16 08:32 Ketorolac Tromethamine (Toradol 30mg) 15 mg Q8H PRN IV moderate pain 4-6 09/29/16 22:48 10/04/16 22:47 Levofloxacin (Levaquin) 100 ml @ 100 mls/hr Q24H IVPB 09/30/16 22:00 10/07/16 21:59 09/30/16 21:10 Lorazepam (Ativan 2mg/ml 1ml) 0.5 mg Q4H PRN IV For Anxiety 09/29/16 22:50 10/06/16 22:49 Methylprednisolone Sodium Succinate (Solu-MEDROL) 60 mg DAILY IV 10/01/16 09:00 10/31/16 08:59 10/01/16 08:26 Miscellaneous Medication (fentaNYL Destruction) 1 ea Q72H MISC 09/30/16 13:00 10/30/16 12:59 09/30/16 13:13 Naloxone HCl (Narcan) 0.1 mg STAT PRN IV sedation scale 3-4 09/29/16 22:44 10/29/16 22:43 Nitroglycerin (Ntg) 0.4 mg Q5M X 3 DOSES PRN SL Prn Chest Pain 09/29/16 22:30 10/29/16 22:29 Ondansetron HCl (Zofran) 4 mg Q6H PRN IVP Nausea & Vomiting 09/29/16 22:51 10/29/16 22:50 Oxycodone/ Acetaminophen (Percocet 5-325) 1 tab Q4H PRN ORAL severe pain 10/01/16 09:15 10/08/16 09:14 Pantoprazole (Protonix) 40 mg BID ORAL 09/30/16 09:00 10/30/16 08:59 10/01/16 08:26 Promethazine HCl/ Codeine (Phenergan with Codeine) 5 ml Q6H PRN ORAL cough 09/29/16 22:51 10/29/16 22:50 Temazepam (Restoril) 15 mg HSPRN PRN ORAL Insomnia 09/29/16 22:49 10/06/16 22:48 Theophylline (Jerry-Dur) 100 mg EVERY 12 HOURS ORAL 09/30/16 09:00 10/30/16 08:59 10/01/16 08:24 [facility] CenterBrandi Ross NP Oct 01, 2016 09:45
--- NOTE | 2016-10-01 11:40 | Diagnostic Imaging Report ---
Indication: DYSPNEA Technique: One view of the chest Comparison: 6 27 x 17 Findings: Again demonstrated is atelectasis at the lung bases, increased on the left, decreased on the right. The upper lungs, bilateral pleural spaces are clear. Heart size is normal Impression: Increased left, decreased right basilar atelectasis. Otherwise stable, over 3 days, findings as described
[2016-10-01 11:53] VITALS: BP 130/77
[2016-10-01] MEDS ORDERED: THEOPHYLLINE A100 MG ORAL (12:01)
[2016-10-01] MEDS ORDERED: MEDROL4 MG ORAL (12:01)
[2016-10-01] MEDS ORDERED: LEVAQUIN500 MG ORAL (12:01)
--- NOTE | 2016-10-01 12:01 | Consultation ---
DATE OF CONSULTATION: 10/01/2016 CONSULTING PHYSICIAN: Sherry Benoit M.D. REFERRING PHYSICIAN: Cristy Carmona M.D. PHYSICIAN HAND PACKER: Valerie Carty CHIEF COMPLAINT: Abdominal pain. HISTORY OF PRESENT ILLNESS: This is a 66-year-old male who is being seen on the Med/Surg floor of [facility] for initial comprehensive pain management consultation. The patient reports that he has been having chronic abdominal pain for 4 years, off and on to chronic pain. It is 9/10. He is describing the pain as sharp and stabbing pain. Nothing has increased the pain except for alcohol and medication has reduced the pain. The patient as an outpatient is seeing , receiving fentanyl patch 75 mcg every 72 hours and Percocet 10/325 mg 108 hours a month. At this time, he was admitted under the care of Dr. Carmona, due to COPD exacerbation. He was started on fentanyl patch 75 mcg every 72 hours and morphine 2 mg IV every four hours as needed for severe pain. At this time, we were consulted so that the patient would have adequate pain control while here in the hospital for a fast recovery. PAST MEDICAL HISTORY: Pancreatitis and COPD. PAST SURGICAL HISTORY: Gallbladder removal and fundoplication. MEDICATIONS: Fentanyl patch, Advair, Prilosec, Percocet, and Zofran. ALLERGIES: Penicillin. SOCIAL HISTORY: History of smoking tobacco, drinking alcohol, and drug abuse. REVIEW OF SYSTEMS: Denies rash, fever, chills, sweating, dizziness, drowsiness, blurred vision, sore throat, or change in his weight. No nausea, vomiting, diarrhea or blood in the stool or urine. No bowel or bladder incontinence. No dysuria. He is complaining of abdominal pain. PHYSICAL EXAMINATION: GENERAL: Alert, awake, and oriented x3. VITAL SIGNS: Blood pressure 137/67, heart rate 92, oxygen saturation 99%, respiratory rate 21, and temperature is 97.6 degrees Fahrenheit. Height is 5 feet 8 inches and weight is 143 pounds. HEENT: PERRLA. NECK: Range of motion is full in all directions. No tenderness in paracervical muscles. No adenopathy. LUNGS: Decreased breath sounds bilaterally. HEART: S1 and S2 regular. ABDOMEN: Tenderness to palpation. BACK: Range of motion is decreased on flexion and extension. No tenderness to paraspinous and trapezius muscles. EXTREMITIES: Upper extremity range of motion is full in all directions. Motor is intact. No cyanosis, no clubbing, and no edema. Sensory is intact. Reflexes are not obtainable. No adenopathy. Lower extremity range of motion is full in all directions. Motor is intact. No cyanosis, no clubbing, and no edema. Sensory is intact. Reflexes are not obtainable. No adenopathy. ASSESSMENT AND PLAN: This is a 66-year-old male with chronic pancreatitis and chronic abdominal pain. The patient will be continued on fentanyl patch and we will discontinue the morphine IV and start him on Percocet 5/325 mg every four hours as needed for severe pain. The patient was discussed with Dr. Benoit and Dr. Benoit concurred. We will follow the patient. Thank you very much for the courtesy of this consultation. Sherry Benoit M.D. MARCIO Carty DR: GLADIS JOB#: [id number] CC: RONAN
--- NOTE | 2016-10-01 13:55 | GI Initial Consult Note ---
Brothers,Leela Lincoln NAdriennePAdrienne 10/01/16 1355: History of Present Illness General Date patient seen: Oct 01, 2016 Time patient seen: 11:00 Reason for Hospitalization: Dyspnea/Respdistress Referring physician: COLEMAN RUVALCABA Reason for Consultation: ABDOMINAL PAIN Present Illness HPI 66-year-old male presents ED complaining of shortness of breath x2 days. Patient has history of COPD. States that he's been having cough and wheezing. Patient was given breathing treatment by EMS. Cough is productive with yellowish phlegm. Denies fevers chills. Denies chest pain. Denies drug use. No other aggravating relieving factors. Denies any other associated symptom GI Consult. HPI noted above. GI consulted for abdominal pain. Pt seen floor , awake A&Ox4 NAD ambulating around unit. He c/o of RUQ abdominal pain he contributes to his chronic pancreatitis. The patient stated he had a history of alcoholic pancreatitis approximately 4 years ago. Hx of ETOH abuse. Since then, the patient denies any use of tobacco nor ETOH. He presents today with abdominal pain of unknown etiology and leukocytosis. No active s/sx of N/V/D. Denies any weight loss. No known history of endoscopic procedures. Home Meds Active Scripts Levofloxacin* (LEVAQUIN*) 500 Mg Tablet, 500 MG ORAL DAILY, #5 TAB Prov:Brandi Corona NP (Vanchtein) 10/01/16 Theophylline (THEODUR*) 100 Mg Tab.er.12h, 100 MG ORAL EVERY 12 HOURS for 7 Days , #14 TAB Prov:Brandi Corona NP (Vanchtein) 10/01/16 Methylprednisolone* (MEDROL*) 4 Mg Tablet, 4 MG ORAL DAILY, #10 TAB 0 Refills Prov:Brandi Corona NP (Vanchtein) 10/01/16 Reported Medications Sertraline Hcl* (SERTRALINE HCL*) 25 Mg Tablet, 25 MG ORAL DAILY, TAB 09/29/16 Fentanyl 75MCG Patch* (FENTANYL 75MCG PATCH*) 1 Each Patch.td72, 1 PATCH TDERMAL EVERY 72 HOURS, PATCH 09/29/16 Ondansetron Hcl* (ZOFRAN*) 8 Mg Tablet, 8 MG ORAL Q8HR Y for P, #4 TAB 0 Refills 09/29/16 Oxycodone Hcl/Acetaminophen 2.5-325 (OXYCODON-ACETAMINOPHEN 2.5-325) 1 Each Tablet, 1 TAB ORAL Q4H, TAB 09/29/16 Omeprazole Magnesium (PRILOSEC OTC) 20 Mg Tablet.dr, 20 MG ORAL DAILY, TAB 09/29/16 Fluticasone/Salmeterol (Advair 100-50 Diskus) 1 Each Blst.w.dev, 1 PUFF INH EVERY 12 HOURS, EA 09/29/16 Med list reviewed/reconciled: Yes Allergies: Coded Allergies: PENICILLINS (Verified Allergy, Unknown, 09/28/16) WOOL (Verified Allergy, Unknown, 09/28/16) Uncoded Allergies: POLLEN (Allergy, Unknown, 09/28/16) Patient History History Provided By: Patient, Medical Record [facility] Narrative Past Medical History: HTN, asthma, COPD Past Surgical History: none Pertinent Family History: none Social History: Denies: alcohol use, drug use, smoking Review of Systems All Other Systems: limited Physical Exam Vital Signs Date Time Temp Pulse Resp B/P Pulse Ox O2 Delivery O2 Flow Rate FiO2 09/28/16 20:27 99.9 92 16 131/75 89 Room Air 09/29/16 00:23 2.0 09/29/16 07:05 28 Sp02 EP Interpretation: reviewed Labs Laboratory Tests Test 10/01/16 08:20 White Blood Count 15.4 K/UL (4.8-10.8) H Red Blood Count 4.02 M/UL (4.70-6.10) L Hemoglobin 11.7 G/DL (14.2-18.0) L Hematocrit 36.7 % (42.0-52.0) L Mean Corpuscular Volume 91 FL (80-99) Mean Corpuscular Hemoglobin 29.0 PG (27.0-31.0) Mean Corpuscular Hemoglobin Concent 31.8 G/DL (32.0-36.0) L Red Cell Distribution Width 15.2 % (11.6-14.8) H Platelet Count 400 K/UL (150-450) Mean Platelet Volume 7.1 FL (6.5-10.1) Neutrophils (%) (Auto) 79.9 % (45.0-75.0) H Lymphocytes (%) (Auto) 13.1 % (20.0-45.0) L Monocytes (%) (Auto) 6.6 % (1.0-10.0) Eosinophils (%) (Auto) 0.0 % (0.0-3.0) Basophils (%) (Auto) 0.3 % (0.0-2.0) Sodium Level 135 mEQ/L (135-145) Potassium Level 4.2 mEQ/L (3.4-4.9) Chloride Level 96 mEQ/L (98-107) L Carbon Dioxide Level 24 mEQ/L (20-30) Anion Gap 15 (5-15) Blood Urea Nitrogen 29 mg/dL (7-23) H Creatinine 0.9 mg/dL (0.7-1.2) Estimat Glomerular Filtration Rate > 60 mL/min (>60) Glucose Level 113 mg/dL (74-106) H Calcium Level 9.2 mg/dL (8.6-10.2) Phosphorus Level 4.4 mg/dL (2.5-4.8) Magnesium Level 1.6 mg/dL (1.7-2.5) L Total Bilirubin 0.2 mg/dL (0.0-1.2) Aspartate Amino Transf (AST/SGOT) 17 U/L (5-40) Alanine Aminotransferase (ALT/SGPT) 11 U/L (3-41) Alkaline Phosphatase 70 U/L (40-129) Total Protein 7.1 g/dL (6.6-8.7) Albumin 3.9 g/dL (3.5-5.2) Globulin 3.2 g/dL Albumin/Globulin Ratio 1.2 (1.0-2.7) Lipase 23 U/L (< 60) General Appearance: well appearing, no apparent distress, alert, thin Head: normocephalic EENT: PERRL/EOMI, normal ENT inspection Neck: normal inspection, full range of motion, supple Respiratory: normal breath sounds, no respiratory distress Cardiovascular: normal rate Gastrointestinal: normal inspection, soft, tenderness - RUQ Rectal: deferred Genitourinary: no CVA tenderness Musculoskeletal: back normal, normal range of motion Neurologic: normal inspection, alert, oriented x3, responsive Psychiatric: normal inspection, judgement/insight normal, memory normal Skin: normal inspection, normal color, no rash, warm/dry Lymphatic: normal inspection, no adenopathy Current Medications Current Medications Medications (Trade) Dose Ordered Sig/Neal Route PRN Reason Start Time Stop Time Status Last Admin Dose Admin Albuterol/ Ipratropium (DuoNeb 0.5-3(2.5)mg/3ml) 3 ml Q4H PRN HHN dyspnea 09/29/16 22:50 10/04/16 22:49 10/01/16 02:29 Dextrose (Dextrose 50%) STAT PRN IV Hypoglycemia 09/29/16 22:49 10/29/16 22:48 Fentanyl (Duragesic) 1 patch Q72H TDERMAL 09/30/16 13:00 10/07/16 12:59 09/30/16 12:54 Heparin Sodium (Porcine) (Heparin 5000 units/ml) 5,000 units EVERY 12 HOURS SUBQ 09/30/16 09:00 10/30/16 08:59 10/01/16 08:32 Ketorolac Tromethamine (Toradol 30mg) 15 mg Q8H PRN IV moderate pain 4-6 09/29/16 22:48 10/04/16 22:47 Levofloxacin (Levaquin) 100 ml @ 100 mls/hr Q24H IVPB 09/30/16 22:00 10/07/16 21:59 09/30/16 21:10 Lorazepam (Ativan 2mg/ml 1ml) 0.5 mg Q4H PRN IV For Anxiety 09/29/16 22:50 10/06/16 22:49 Magnesium Sulfate (Magnesium Sulfate 1gm/100ml) 100 ml @ 100 mls/hr Q1H IV 10/01/16 13:00 10/01/16 14:59 Methylprednisolone Sodium Succinate (Solu-MEDROL) 60 mg DAILY IV 10/01/16 09:00 10/31/16 08:59 10/01/16 08:26 Miscellaneous Medication (fentaNYL Destruction) 1 ea Q72H MISC 09/30/16 13:00 10/30/16 12:59 09/30/16 13:13 Naloxone HCl (Narcan) 0.1 mg STAT PRN IV sedation scale 3-4 09/29/16 22:44 10/29/16 22:43 Nitroglycerin (Ntg) 0.4 mg Q5M X 3 DOSES PRN SL Prn Chest Pain 09/29/16 22:30 10/29/16 22:29 Ondansetron HCl (Zofran) 4 mg Q6H PRN IVP Nausea & Vomiting 09/29/16 22:51 10/29/16 22:50 Oxycodone/ Acetaminophen 1 tab 1 tab Q4H PRN ORAL severe pain 10/01/16 09:15 10/08/16 09:14 Pantoprazole (Protonix) 40 mg BID ORAL 09/30/16 09:00 10/30/16 08:59 10/01/16 08:26 Promethazine HCl/ Codeine (Phenergan with Codeine) 5 ml Q6H PRN ORAL cough 09/29/16 22:51 10/29/16 22:50 Temazepam (Restoril) 15 mg HSPRN PRN ORAL Insomnia 09/29/16 22:49 10/06/16 22:48 Theophylline (Jerry-Dur) 100 mg EVERY 12 HOURS ORAL 09/30/16 09:00 10/30/16 08:59 10/01/16 08:24 GI: Plan Problems: (1) Anemia in chronic illness (2) Acute on chronic respiratory failure with hypoxia (3) Chronic pancreatitis (4) Chronic pain Plan okay for DC per GI standpoint History of alcoholic pancreatitis, no indication patient has chronic pancreatitis. lipase WNL avoid ETOH regular diet, tolerating abx H2B recommend patient for outpatient colonoscopy. Discussed with Dr. Tai. Thank you for referring this patient. ROGELIO TAI 10/06/16 0759: History of Present Illness General Reason for Hospitalization: Dyspnea/Respdistress Present Illness Home Meds Active Scripts Levofloxacin* (LEVAQUIN*) 500 Mg Tablet, 500 MG ORAL DAILY, #5 TAB Prov:Brandi Corona NP (Vanchtein) 10/01/16 Theophylline (THEODUR*) 100 Mg Tab.er.12h, 100 MG ORAL EVERY 12 HOURS for 7 Days , #14 TAB Prov:Brandi Corona NP (Vanchtein) 10/01/16 Methylprednisolone* (MEDROL*) 4 Mg Tablet, 4 MG ORAL DAILY, #10 TAB 0 Refills Prov:Cj Webster)Brandi NP 10/01/16 Reported Medications Sertraline Hcl* (SERTRALINE HCL*) 25 Mg Tablet, 25 MG ORAL DAILY, TAB 09/29/16 Fentanyl 75MCG Patch* (FENTANYL 75MCG PATCH*) 1 Each Patch.td72, 1 PATCH TDERMAL EVERY 72 HOURS, PATCH 09/29/16 Ondansetron Hcl* (ZOFRAN*) 8 Mg Tablet, 8 MG ORAL Q8HR Y for P, #4 TAB 0 Refills 09/29/16 Oxycodone Hcl/Acetaminophen 2.5-325 (OXYCODON-ACETAMINOPHEN 2.5-325) 1 Each Tablet, 1 TAB ORAL Q4H, TAB 09/29/16 Omeprazole Magnesium (PRILOSEC OTC) 20 Mg Tablet.dr, 20 MG ORAL DAILY, TAB 09/29/16 Fluticasone/Salmeterol (Advair 100-50 Diskus) 1 Each Blst.w.dev, 1 PUFF INH EVERY 12 HOURS, EA 09/29/16 Allergies: Coded Allergies: PENICILLINS (Verified Allergy, Unknown, 09/28/16) WOOL (Verified Allergy, Unknown, 09/28/16) Uncoded Allergies: POLLEN (Allergy, Unknown, 09/28/16) GI: Plan Plan The patient was seen and examined at bedside and all new and available data was reviewed in the patients chart. I agree with the above findings, impression and plan. (Patient seen earlier today. Signature stamp does not reflect patient encounter time.). -Rogelio BrothersHon[facility] Lincoln Wilkinson Oct 01, 2016 13:55 ROGELIO TAI Oct 06, 2016 07:59
[2016-10-01 16:04] VITALS: BP 119/88
[2016-10-01] MEDS ORDERED: NS 275ml ONE (16:28)
[2016-10-01] MEDS ORDERED: Tubing IV Secondary IV ONE ×2 (16:28)
--- NOTE | 2016-10-02 13:57 | Cardiology Report ---
APPROVED REPORT EKG Measurement Heart [id number] Normal sinus rhythm Normal ECG
[2016-10-02] MEDS ORDERED: fentaNYL Destruction MISC SCH (18:00)
--- NOTE | 2016-10-06 13:39 | Discharge Summary ---
Discharge Summary Hospital Course Date of Admission Sep 28, 2016 at 22:25 Date of Discharge Oct 01, 2016 at 16:29 Admitting Diagnosis COPD HPI Brent Castaneda is a 66 year old male who was admitted on Sep 28, 2016 at 22:25 for Chronic Obstructive Pulmonary Disorder Hospital Course dc summary #[id number] Discharge Medications New Medications: Levofloxacin* (Levaquin*) 500 Mg Tablet 500 MG ORAL DAILY, #5 TAB Methylprednisolone* (Medrol*) 4 Mg Tablet 4 MG ORAL DAILY, #10 TAB 0 Refills Theophylline (Theodur*) 100 Mg Tab.er.12h 100 MG ORAL EVERY 12 HOURS for 7 Days, #14 TAB Continued Medications: Fentanyl 75MCG Patch* (Fentanyl 75MCG Patch*) 1 Each Patch.td72 1 PATCH TDERMAL EVERY 72 HOURS, PATCH Fluticasone/Salmeterol (Advair 100-50 Diskus) 1 Each Blst.w.dev 1 PUFF INH EVERY 12 HOURS, EA Omeprazole Magnesium (Prilosec Otc) 20 Mg Tablet.dr 20 MG ORAL DAILY, TAB Ondansetron Hcl* (Zofran*) 8 Mg Tablet 8 MG ORAL Q8HR PRN for P, #4 TAB 0 Refills Oxycodone Hcl/Acetaminophen 2.5-325 (Oxycodon-Acetaminophen 2.5-325) 1 Each Tablet 1 TAB ORAL Q4H, TAB Sertraline Hcl* (Sertraline Hcl*) 25 Mg Tablet 25 MG ORAL DAILY, TAB Discharge Condition Upon Discharge: stable Discharge Disposition Patient was discharged to [facility] (01) Discharge Diagnoses: Cj (Chloe)Brandi NP Oct 06, 2016 13:39
--- NOTE | 2016-10-07 | Discharge Summary 2 SIG ---
DATE OF ADMISSION: 09/28/2016 DATE OF DISCHARGE: 10/01/2016 REASON FOR ADMISSION: The patient is a 66 years old male with history of COPD, alcohol abuse, and pancreatitis who presented to emergency department complaining of shortness of breath for two days, cough, and wheezing. The patient was given breathing treatment by paramedics. Reported productive cough with yellow phlegm. Denied fever or chills. Denied chest pain. Denied drug abuse. The patient presented with shortness of breath and wheezing. He had COPD exacerbation. Laboratories were unremarkable. The patient admitted for further management. ADMITTING DIAGNOSES: 1. Acute on chronic respiratory failure with hypoxia. 2. Acute chronic obstructive pulmonary disease exacerbation. 3. Anemia of chronic disease. 4. History of alcoholic pancreatitis. 5. Chronic pain syndrome. 6. History of alcohol abuse. 7. Hypertension. HOSPITAL STAY: The patient admitted. ID consult requested along with pain specialist for management of chronic pain. Supplemental oxygen and pulmonary toilet provided as needed. The patient started on intravenous steroids. Next day, the patient had leukocytosis, likely reactive. Clinically, the patient improved. Steroids were changed to oral Medrol Dosepak. The patient was on empiric antibiotic. Chest x-ray revealed no acute cardiopulmonary pathology, but shows bilateral basilar atelectasis. Followup chest x-ray on the day of the leukocytosis showed increased left and decreased right atelectasis. Theophylline was continued. Antitussive provided as needed. Blood culture negative. DVT and GI prophylaxis provided. Pain specialist followed. Recommended judicious pain management. Magnesium was replaced. The patient was stable for discharge to assisted living. GI seen the patient. Per GI, the patient has a history of alcoholic pancreatitis. No evidence of chronic pancreatitis. Lipase within normal limits. The patient able to tolerate diet. The patient was counseled on avoidance of alcohol. Recommended outpatient colonoscopy to follow up. DVT prophylaxis provided. Empiric antibiotic was given. The patient was stable for discharge. DISCHARGE DIAGNOSES: 1. Acute on chronic respiratory failure with hypoxemia. 2. Acute chronic obstructive pulmonary disease exacerbation. 3. Anemia of chronic disease. 4. History of alcohol abuse. 5. History of alcoholic pancreatitis. 6. Chronic pain syndrome. 7. Hypertension. Of note, the patient was normotensive. No need for antihypertensive medication. 8. Magnesium was replaced. Prior to discharge, it was 1.6. 9. Hemoglobin and hematocrit remained stable. Hemoglobin 11.7 and hematocrit 36.7. Recommended outpatient anemia workup. DISCHARGE MEDICATIONS: See medication reconciliation list. DISCHARGE INSTRUCTIONS: The patient discharged to assisted living. Follow up with the primary medical doctor. Cristy Carmona M.D. I have been assigned to dictate discharge summary on this account and I was not involved in the patient's management. Brandi hirschMinh cabrera DR: GRIFFIN JOB#: [id number] CC:
== END 2016-10-01 16:29 | disposition home or self-care (01) | DRG 190 ==
LOC: EDBD 20:33 → EMR 21:52 → 2E 22:25 → EDBEDREQ 22:59 → 2E 09-29 00:44 → 4E 09-29 21:55
DX: J44.1 Chronic obstructive pulmonary disease with (acute) exacerbation (principal); J96.21 Acute and chronic respiratory failure with hypoxia; E83.42 Hypomagnesemia; I10 Essential (primary) hypertension; Z88.0 Allergy status to penicillin; Z87.891 Personal history of nicotine dependence; D63.8 Anemia in other chronic diseases classified elsewhere; G89.4 Chronic pain syndrome; F10.21 Alcohol dependence, in remission
CPT/HCPCS: 36415; 71010; 80053; 82550; 82553; 83605; 83690; 83735; 83880; 84100; 84484; 85025; 87040; 87081; 93005; 94640; 94664; 94760; J2405; J7620

== ENCOUNTER 2016-11-13 12:19 | Emergency (ER) | payer OTHER, MEDICAID ==
[~2016-11-13] VITALS: Ht 175.3 cm; Wt 68.0 kg
[~2016-11-13 12:19] MED LIST: ADVAIR 100-501 EACH INH; ANORO ELLIPTA1 EACH; FENTANYL1 EAC2 TDERMAL; LEVAQUIN500 MG ORAL; MEDROL4 MG ORAL; OXYCODON-ACETA1 EAC2 ORAL; OXYCODON-ACETA1 EACH ORAL; PRILOSEC OTC20 MG ORAL; PROAIR HFA8.5 GM INH; SERTRALINE HCL25 MG ORAL; THEOPHYLLINE A100 MG ORAL; ZOFRAN8 MG ORAL
[2016-11-13] MEDS ORDERED: PREDNISONE20 MG ORAL (12:27)
[2016-11-13] MEDS ORDERED: Ipratropium 0.02% Inh Soln 2.5ml UD HHN ONE (12:30)
[2016-11-13] MEDS ORDERED: Albuterol ud Inhalation HHN ONE (12:30)
[2016-11-13 12:38] VITALS: BP 108/75
--- NOTE | 2016-11-13 12:47 | Emergency Room Report ---
History of Present Illness General Chief Complaint: Dyspnea/Respdistress Source: Medical Record Present Illness HPI 66YOM BIBEMS for "COPD exacerbation." patient came from [facility] Was seen here yesterday for same. Signed out AMA. --review of CXR, labs show no acute abnormality to suggest PNA Patient left here, went to PMD's office - got refills for COPD meds and [place] Was given this morning at [facility] Akanksha fever/chills, cough Allergies: Coded Allergies: PENICILLINS (Verified Allergy, Unknown, 09/28/16) WOOL (Verified Allergy, Unknown, 09/28/16) Uncoded Allergies: POLLEN (Allergy, Unknown, 09/28/16) Patient History Past Medical History: COPD Pertinent Family History: none Social History: Denies: alcohol use, drug use, smoking Reviewed Nursing Documentation: PMH: Agreed, PSxH: Agreed Nursing Documentation-PMH Past Medical History Deferred: Pt Cognitively Impaired Past Medical History: No History, Except For Hx Cardiac Problems: No - Hx Hypertension: Yes Hx Asthma: Yes Hx COPD: Yes Hx Cancer: No Hx Gastrointestinal Problems: Yes Hx Neurological Problems: No Review of Systems All Other Systems: negative except mentioned in HPI Physical Exam Vital Signs Date Time Temp Pulse Resp B/P Pulse Ox O2 Delivery O2 Flow Rate FiO2 11/13/16 12:14 98.2 80 20 122/70 95 Room Air Sp02 EP Interpretation: reviewed, normal General Appearance: normal inspection, well appearing, no apparent distress, alert, GCS 15, non-toxic Head: normocephalic, atraumatic Eyes: bilateral eye EOMI, bilateral eye PERRL ENT: normal ENT inspection, hearing grossly normal, normal voice Neck: normal inspection, full range of motion, supple, no bony tend Respiratory: normal inspection, lungs clear, normal breath sounds, no respiratory distress, no retraction, no accessory muscle use, speaking full sentences, wheezing Cardiovascular #1: regular rate, rhythm, no edema Gastrointestinal: normal inspection, normal bowel sounds, non tender, soft, no guarding, no hernia Genitourinary: no CVA tenderness Musculoskeletal: normal inspection, back normal, normal range of motion, Jeffrey' s Sign negative Neurologic: normal inspection, alert, oriented x3, responsive, engraver III-XII nml as tested, motor strength/tone normal, speech normal Psychiatric: normal inspection, judgement/insight normal, mood/affect normal Skin: normal inspection, normal color, no rash Medical Decision Making Diagnostic Impression: Primary Impression: COPD not affecting current episode of care ER Course VSS. Afebrile. Not hypoxic Mild wheezing Given 1 neb here No reason for admission, further workup. Patient not systemically ill. had comprehensive workup yesterday. Saw PMD yesterday. has all his meds at [facility] DC back to [facility] Last Vital Signs Date Time Temp Pulse Resp B/P Pulse Ox O2 Delivery O2 Flow Rate FiO2 11/13/16 12:38 97.1 76 14 108/75 91 Room Air Status: unchanged Disposition: [facility] Condition: Improved Scripts Prednisone* (PREDNISONE*) 20 Mg Tablet 40 MG ORAL DAILY for 5 Days, #10 TAB Prov: JUAN SOLOMON M.D. 11/13/16 Patient Instructions: Chronic Obstructive Pulmonary Disease Exacerbation JUAN SOLOMON M.D. Nov 13, 2016 12:47
[2016-11-13] MEDS ORDERED: FENTANYL1 EAC2 TDERMAL (14:19)
[2016-11-13] MEDS ORDERED: ANORO ELLIPTA1 EACH IH (14:19)
[2016-11-13 14:54] VITALS: BP 112/79
== END 2016-11-13 14:50 ==
LOC: EDBD 12:19 → EMR 13:38
DX: J44.9 Chronic obstructive pulmonary disease, unspecified (principal); Z88.0 Allergy status to penicillin; Z91.09 Other allergy status, other than to drugs and biological substances; I10 Essential (primary) hypertension
CPT/HCPCS: 94640; 94664; 99283

== ENCOUNTER 2018-07-23 15:59 | Emergency (ER) | payer MEDICAID, OTHER ==
[~2018-07-23] VITALS: Ht 172.7 cm; Wt 68.0 kg
[~2018-07-23 15:59] MED LIST changes: +ANORO ELLIPTA1 EACH IH; +PREDNISONE20 MG ORAL
[2018-07-23] MEDS ORDERED: SERTRALINE HCL100 MG PO (16:12)
--- NOTE | 2018-07-23 16:22 | NUR ---
ED Nurse Note: PT WALKED IN TO ER TODAY FROM HOME. AOX4. PT HERE FOR PERCOCET REFILL FOR CHRONIC ABDOMINAL PAIN WHICH PT STATES IS CHRONIC DUE TO PANCREATITIS. ON ASSESSMENT, PT'S O2 SAT DOWN TO 84% BUT STATES HE HAS HX OF ASTHMA AND COPD. PT PLACED ON 2L O2 AND O2SAT UP TO 92%. WHEEZING AUSCULTATED IN ALL LOBES. HOWEVER, NO SIGNS OF RESPIRATORY DISTRESS OR RETRACTIONS NOTED. PT ABLE TO SPEAK IN FULL SENTENCES.
[2018-07-23 16:25] VITALS: BP 122/76
--- NOTE | 2018-07-23 16:25 | NUR ---
ED Nurse Note: RT CALLED FOR BREATHING TX.
[2018-07-23] MEDS: Albuterol ud Inhalation HHN SCH ×3 (16:29→17:14)
[2018-07-23] MEDS: Ipratropium 0.02% Inh Soln 2.5ml UD HHN SCH ×3 (16:29→17:14)
[2018-07-23] MEDS ORDERED: PERCOCET 10-321 EACH ORAL (17:19)
[2018-07-23] MEDS ORDERED: ALBUTEROL SULF8.5 GM INH (17:19)
[2018-07-23] MEDS ORDERED: PREDNISONE20 MG ORAL (17:19)
[2018-07-23 17:24] VITALS: BP 126/78
--- NOTE | 2018-07-23 17:25 | NUR ---
ED Nurse Note: PT SITTING PEACEFULLY IN BED IN NAD. AOX4. PRESCRIPTIONS AND DISCHARGE PAPERWORK EXPLAINED TO PT. PT VERBALIZES UNDERSTANDING AND ALL QUESTIONS ANSWERED. PRESCRIPTIONS AND DISCHARGE PAPERWORK GIVEN TO PT AND ID WRISTBAND REMOVED. PT WALKED OUT OF ER WITH STEADY GAIT AND ALL BELONGINGS.
--- NOTE | 2018-07-23 17:35 | Emergency Room Report ---
History of Present Illness General Chief Complaint: Medication Refill Source: Patient Present Illness HPI 67-year-old male presents ED for evaluation. Patient came from assisted living states that his facility ran out of his Percocet. Has been taking Percocet 10 mg every 4 hours for chronic pancreatitis. Pain is throbbing, 8 out of 10, nonradiating. Denies fevers or chills. Denies chest pain or shortness of breath. Denies nausea or vomiting. Patient also complaining of wheezing. History of asthma and COPD. Denies fevers chills. Denies cough. No other aggravating relieving factors. Denies any other associated symptoms Allergies: Coded Allergies: PENICILLINS (Verified Allergy, Unknown, 09/28/16) WOOL (Verified Allergy, Unknown, 09/28/16) Uncoded Allergies: POLLEN (Allergy, Unknown, 09/28/16) Patient History Past Medical History: HTN, COPD, other - pancreatitis Past Surgical History: none Pertinent Family History: none Social History: Denies: smoking, alcohol use, drug use Immunizations: UTD Reviewed Nursing Documentation: PMH: Agreed; PSxH: Agreed Nursing Documentation-PMH Past Medical History: No History, Except For Hx Cardiac Problems: No - Hx Hypertension: Yes Hx Asthma: Yes Hx COPD: Yes Hx Cancer: No Hx Gastrointestinal Problems: Yes Hx Neurological Problems: No Review of Systems All Other Systems: negative except mentioned in HPI Physical Exam Vital Signs Date Time Temp Pulse Resp B/P (MAP) Pulse Ox O2 Delivery O2 Flow Rate FiO2 07/23/18 16:05 99.0 84 20 126/72 86 Room Air 07/23/18 16:25 2.0 28 Sp02 EP Interpretation: reviewed, normal General Appearance: no apparent distress, alert, GCS 15, non-toxic Head: normocephalic, atraumatic Eyes: bilateral eye normal inspection, bilateral eye PERRL ENT: hearing grossly normal, normal pharynx, no angioedema, normal voice Neck: full range of motion, supple/symm/no masses Respiratory: chest non-tender, speaking full sentences, wheezing Cardiovascular #1: regular rate, rhythm, no edema Cardiovascular #2: 2+ carotid (R), 2+ carotid (L), 2+ radial (R), 2+ radial (L) , 2+ dorsalis pedis (R), 2+ dorsalis pedis (L) Gastrointestinal: normal bowel sounds, soft, non-distended, no guarding, no rebound, tenderness - epigastric Rectal: deferred Genitourinary: normal inspection, no CVA tenderness Musculoskeletal: back normal, gait/station normal, normal range of motion, non- tender Neurologic: alert, oriented x3, responsive, motor strength/tone normal, sensory intact, speech normal Psychiatric: judgement/insight normal, memory normal, mood/affect normal, no suicidal/homicidal ideation Reflexes: 3+ bicep (R), 3+ bicep (L), 3+ tricep (R), 3+ tricep (L), 3+ knee (R) , 3+ knee (L) Skin: normal color, no rash, warm/dry, well hydrated Lymphatic: no adenopathy Medical Decision Making Diagnostic Impression: Primary Impression: COPD (chronic obstructive pulmonary disease) Qualified Codes: J44.9 - Chronic obstructive pulmonary disease, unspecified Additional Impression: Chronic pain Qualified Codes: G89.29 - Other chronic pain ER Course Hospital Course 67-year-old male presents to ED complaining of wheezing. h/o COPD. requesting refill of his percocet Differential diagnoses include: URI, bronchitis, asthma/COPD, pneumonia Clinical course Patient placed on stretcher. After initial history and physical I ordered labs , breathing treatments. On reassessment wheezing has improved. Improved breath sounds bilaterally. I reviewed CURES; I cannot find any recent narcotic prescription refills. I discussed that the emergency room is not an appropriate avenue for chronic pain medication refills. However I will agreed to describe him 2 tablets of Percocet until he can see his PMD tomorrow. Patient agrees to plan. Safe for discharge with close outpatient follow-up Diagnosis - COPD, chronic pain Stable and discharged home with prescriptions for Rx albuterol, prednisone, percocet. Instructed to followup with PMD. Return to ED if symptoms recur or worsen Last Vital Signs Date Time Temp Pulse Resp B/P (MAP) Pulse Ox O2 Delivery O2 Flow Rate FiO2 07/23/18 17:24 98.6 88 18 126/78 94 Nasal Cannula 2.0 07/23/18 16:25 28 Status: improved Disposition: HOME, SELF-CARE Condition: Stable Scripts Oxycodone Hcl/Acetaminophen 10-325 Mg Tablet (PERCOCET 10-325 MG TABLET*) 1 Each Tablet 1 TAB ORAL Q4H PRN for For Pain, #2 TAB Prov: Paul Garcia MD 07/23/18 Prednisone* (PREDNISONE*) 20 Mg Tablet 40 MG ORAL DAILY, #10 TAB Prov: Paul Garcia MD 07/23/18 Albuterol Sulfate* (ALBUTEROL SULFATE MDI*) 8.5 Gm Hfa.aer.ad 2 PUFF INH Q6H, #1 EA 0 Refills Prov: Paul Garcia MD 07/23/18 Patient Instructions: Medicine Refill at the Emergency Department Paul Garcia MD Jul 23, 2018 17:34
== END 2018-07-23 17:29 | disposition home or self-care (01) ==
LOC: EMR 16:34
DX: J44.9 Chronic obstructive pulmonary disease, unspecified (principal); G89.29 Other chronic pain; K86.1 Other chronic pancreatitis; Z88.0 Allergy status to penicillin; Z91.048 Other nonmedicinal substance allergy status; I10 Essential (primary) hypertension
CPT/HCPCS: 94640; 94664; 99284; J7512